=== PATIENT | female | born 1990 | race Caucasian/White ===

== ENCOUNTER 2022-02-05 13:57 | Emergency (ER) | payer OTHER ==
[~2022-02-05] VITALS: Ht 157.5 cm; Wt 59.1 kg
[2022-02-05 14:29] VITALS: BP 114/77
[2022-02-05 15:13] LABS: BASO # 0.1 x10^3/uL (0.0-0.2); BASO % 1 % (0-3); EOS # 0.1 x10^3/uL (0.0-0.7); EOS % 1 % (0-3); HEMATOCRIT 42.6 % (36.0-47.0); HEMOGLOBIN 14.7 g/dL (12.0-15.5); LYMPH # 2.8 x10^3/uL (1.0-4.8); LYMPH % 28 % (24-48); MEAN CORPUSCULAR HEMOGLOBIN 31 pg (25-35); MEAN CORPUSCULAR HGB CONC 34 g/dL (31-37); MEAN CORPUSCULAR VOLUME 90 fL (79-100); MONO # 0.6 x10^3/uL (0.0-1.1); MONO % 6 % (0-9); NEUT # 6.6 x10^3uL (1.8-7.7); NEUT % 65 % (31-73); PLATELET COUNT 294 x10^3/uL (140-400); RED BLOOD COUNT 4.73 x10^6/uL (3.50-5.40); RED CELL DISTRIBUTION WIDTH 13.1 % (11.5-14.5); WHITE BLOOD COUNT 10.1 x10^3/uL (4.0-11.0)
[2022-02-05 15:17] LABS: CREATININE 0.7 mg/dL (0.6-1.0); GFR 98.9; POTASSIUM 3.8 mmol/L (3.5-5.1)
[2022-02-05 15:21] LABS: U PREG PATIENT POSITIVE (NEG)
[2022-02-05 15:23] LABS: ALBUMIN 3.9 g/dL (3.4-5.0); ALBUMIN/GLOBULIN RATIO 1.1 (1.0-1.7); TOTAL BILIRUBIN 0.3 mg/dL (0.2-1.0); TOTAL PROTEIN 7.4 g/dL (6.4-8.2)
--- NOTE | 2022-02-05 15:34 | PHYS DOC ---
Past History Past Surgical History: No Surgical History Alcohol Use: None General Adult EDM: Chief Complaint: VAGINAL BLEEDING HPI: HPI: Patient is a 31-year-old female presents with vaginal bleeding. Patient states she has been having bright red, heavy vaginal bleeding since this morning. Denies clots. No pain. G3, P2. Patient has not been seen by OB as of yet. Denies fever or recent illness. She has history of anxiety and depression. Review of Systems: Review of Systems: ROS At least 10 ROS systems have been reviewed and are negative except as documented in the HPI. General: Negative except as outlined in HPI above. Skin: Negative except as outlined in HPI above. HEENT: Negative except as outlined in HPI above. Neck: Negative except as outlined in HPI above. Respiratory: Negative except as outlined in HPI above.. Cardiovascular: Negative except as outlined in HPI above. Abdomen: Negative except as outlined in HPI above. : Negative except as outlined in HPI above. Back/MSK: Negative except as outlined in HPI above. Neuro: Negative except as outlined in HPI above. Psych: Negative except as outlined in HPI above. Allergies: Allergies: Allergies Coded Allergies Type Severity Reaction Last Updated Verified No Known Drug Allergies 02/05/22 No Physical Exam: PE: Constitutional: Well developed, well nourished, no acute distress, non-toxic appearance. [] HENT: Normocephalic, atraumatic, bilateral external ears normal, oropharynx moist, no oral exudates, nose normal. [] Eyes: PERRLA, EOMI, conjunctiva normal, no discharge. [] Neck: Normal range of motion, no tenderness, supple, no stridor. [] Cardiovascular:Heart rate regular rhythm, no murmur [] Lungs & Thorax: Bilateral breath sounds clear to auscultation [] Abdomen: Bowel sounds normal, soft, no tenderness, no masses, no pulsatile masses. [] Skin: Warm, dry, no erythema, no rash. [] Back: No tenderness, no CVA tenderness. [] Extremities: No tenderness, no cyanosis, no clubbing, ROM intact, no edema. [] Neurologic: Alert and oriented X 3, normal motor function, normal sensory function, no focal deficits noted. [] Psychologic: Affect normal, judgement normal, mood normal. [] Current Patient Data: Labs: Laboratory Tests Test 02/05/22 14:05 3/12/22 14:57 02/05/22 15:02 Urine Color Pending Urine Clarity Pending Urine pH Pending Urine Specific [place] Pending Urine Protein Pending Urine Glucose (UA) Pending Urine Ketones (Stick) Pending Urine Blood Pending Urine Nitrite Pending Urine Bilirubin Pending Urine Urobilinogen Dipstick Pending Urine Leukocyte Esterase Pending Urine RBC Pending Urine WBC Pending Urine Bacteria Pending Urine Test Positive (NEG) White Blood Count 10.1 x10^3/uL (4.0-11.0) Red Blood Count 4.73 x10^6/uL (3.50-5.40) Hemoglobin 14.7 g/dL (12.0-15.5) Hematocrit 42.6 % (36.0-47.0) Mean Corpuscular Volume 90 fL (79-100) Mean Corpuscular Hemoglobin 31 pg (25-35) Mean Corpuscular Hemoglobin Concent 34 g/dL (31-37) Red Cell Distribution Width 13.1 % (11.5-14.5) Platelet Count 294 x10^3/uL (140-400) Neutrophils (%) (Auto) 65 % (31-73) Lymphocytes (%) (Auto) 28 % (24-48) Monocytes (%) (Auto) 6 % (0-9) Eosinophils (%) (Auto) 1 % (0-3) Basophils (%) (Auto) 1 % (0-3) Neutrophils # (Auto) 6.6 x10^3uL (1.8-7.7) Lymphocytes # (Auto) 2.8 x10^3/uL (1.0-4.8) Monocytes # (Auto) 0.6 x10^3/uL (0.0-1.1) Eosinophils # (Auto) 0.1 x10^3/uL (0.0-0.7) Basophils # (Auto) 0.1 x10^3/uL (0.0-0.2) POC Urine HCG, Qualitative hcg positive (Negative) Vital Signs: Vital Signs Date Time Temp Pulse Resp B/P (MAP) Pulse Ox O2 Delivery O2 Flow Rate FiO2 02/05/22 14:29 92 18 114/77 (89) 99 EKG: EKG: [] Radiology/Procedures: Radiology/Procedures: []EXAM: OBSTETRIC ULTRASOUND, <14 WEEKS. HISTORY: Vaginal bleeding in . COMPARISON: None. FINDINGS: Sonographic evaluation of the pelvis was performed transabdominally and transvaginally. The uterus is retroflexed and measures 8.8 x 7.1 x 5.7 cm. There is a single intrauterine gestation measuring 6 weeks 3 days. No pole is detected. The gestational sac contains some echogenic debris. No yolk sac is visualized. The gestational sac is elongated. There is no subchorionic collection. The right ovary measures 3.4 x 2.1 x 1.9 cm. The left ovary measures 3.1 x 2.5 x 1.4 cm. There is normal Doppler flow bilaterally. There is no adnexal mass. There is no significant free fluid. IMPRESSION: 1. An elongated endometrial gestational sac measures 6 weeks 3 days, but no pole or yolk sac is detectable. This is consistent with an anembryonic . Ongoing management is recommended. Electronically signed by: Kitty Cruz MD (02/05/2022 4:30 PM) [id number] Heart Score: C/O Chest Pain: No Risk Factors: Risk Factors: DM, Current or recent (<one month) smoker, HTN, HLP, family history of CAD, obesity. Risk Scores: Score 0 - 3: 2.5% MACE over next 6 weeks - Discharge Home Score 4 - 6: 20.3% MACE over next 6 weeks - Admit for Clinical Observation Score 7 - 10: 72.7% MACE over next 6 weeks - Early Invasive Strategies Course & Med Decision Making: Course & Med Decision Making Pertinent Labs and Imaging studies reviewed. (See chart for details) [] 22-year-old female presents with vaginal bleeding. Vaginally started this morning. Denies abdominal pain. G3, P2. Work-up in ER consisted of labs, urinalysis, quant, urine , type and screen, transvaginal ultrasound. Patient has a lot of anxiety and states that she is going to therapy currently due to her anxiety. Patient has a fear of needles and also vaginal exam. Patient started crying and shaking when she knew we had to labs and a vaginal exam. Patient stated that she wanted us to just do labs and not vaginal exam if she could choose. Patient refused a vaginal exam and labs were obtained. Transvaginal ultrasound also obtained. Urine was positive for blood. Quant level [id number]. urine positive for blood. Transvaginal ultrasound shows an elongated endometrial gestational sac measures 6 weeks 3 days, but no pole or yolk sac is detectable. This is consistent with an anembryonic . Ongoing management is recommended. Discussed results with patient. Advised patient she needs to follow-up with A[facility] DATA [facility]ER on Monday. I gave patient a copy of ultrasound report. Advised patient she would need to follow-up in 48 hours to have repeat quant's. Tylenol if she has discomfort. Discussed return precautions at length with patient. Patient verbalizes understanding of discharge instructions. Dragon Disclaimer: Dragon Disclaimer: This electronic medical record was generated, in whole or in part, using a voice recognition dictation system. Departure Departure: Impression: Primary Impression: Vaginal bleeding during Disposition: HOME / SELF CARE / HOMELESS Condition: STABLE Referrals: PCP,UNKNOWN (PCP) Patient Instructions: Vaginal Bleeding During , [id number] Additional Instructions: Ultrasound could not confirm viable . You need to follow-up in 2 days (48 hours), for repeat hCG quant levels. Your levels in the ER were [id number]. I am providing you with a copy of your ultrasound to show to your ANALYTICAL DATA MINER. They may want to repeat an ultrasound in 2 weeks due to possibly being too early. Please return to emergency room if you have worsening symptoms or concerns such as increase in bleeding, uncontrolled pain. EMERGENCY DEPARTMENT GENERAL DISCHARGE INSTRUCTIONS Thank you for coming to [facility] (ED) today and trusting us with you care. We trust that you had a positivie experience in our Emergency Department. If you wish to speak to the department management, you may call the director at [phone]. YOUR FOLLOW UP INSTRUCTIONS ARE FOLLOWS: 1. Do you have a private Doctor? If you do not have a private doctor, please ask for a resource list of physicians or clinics that may be able to assist you with follow up care. 2. The Emergency Physician has interpreted your x-rays. The X-Ray specialist will also review them. If there is a change in the findings, you will be notified in 48 hours when at all possible. 3. A lab test or culture has been done, your results will be reviewed and you will be notified if you need a change in treatment. ADDITIONAL INSTRUCTIONS AND INFORMATION: 1. Your care today has been supervised by a physician who is specially trained in emergency care. Many problems require more than one evaluation for a complete diagnosis and treatment. We recommend that you schedule your follow up appointment as recommended to ensure complete treatment of you illness or injury. If you are unable to obtain follow up care and continue to have a problem, or if your condition worsens, we recommend that you return to the ED. 2. We are not able to safely determine your condition over the phone nor are we able to give sound medical advice over the phone. For these safety reasons, if you call for medical advice we will ask you to come to the ED for further evaluation. 3. If you have any questions regarding these discharge instructions please call the ED at [phone]. SAFETY INFORMATION: In the interest of safety, wellness, and injury prevention; we encourage you to wear your sealbelt, if you smoke; quite smoking, and we encourage family to use a protective helmet for bicycling and other sporting events that present an increased risk for head injury. IF YOUR SYMPTOMS WORSEN OR NEW SYMPTOMS DEVELOP, OR YOU HAVE CONCERNS ABOUT YOUR CONDITION; OR IF YOUR CONDITION WORSENS WHILE YOU ARE WAITING FOR YOUR FOLLOW UP APPOINTMENT; EITHER CONTACT YOUR PRIMARY CARE DOCTOR, THE PHYSICIAN WHOSE NAME AND NUMBER YOU WERE GIVEN, OR RETURN TO THE ED IMMEDIATELY. DESTINY BYRD APRN Feb 05, 2022 15:34
[2022-02-05 15:44] LABS: CLARITY,URINE CLEAR; COLOR,URINE YELLOW; GLUCOSE,URINE NEG (NEG)
[2022-02-05 15:45] LABS: BACTERIA,URINE 0 /HPF (0-FEW); NITRITE,URINE NEG (NEG); RBC,URINE >40 /HPF (0-2); SQUAMOUS EPITHELIAL CELL,UR FEW /LPF; UROBILINOGEN,URINE 0.2 mg/dL (0.2 mg/dL); WBC,URINE 0 /HPF (0-4)
--- NOTE | 2022-02-05 16:32 | RAD ---
EXAM: OBSTETRIC ULTRASOUND, <14 WEEKS. HISTORY: Vaginal bleeding in . COMPARISON: None. FINDINGS: Sonographic evaluation of the pelvis was performed transabdominally and transvaginally. The uterus is retroflexed and measures 8.8 x 7.1 x 5.7 cm. There is a single intrauterine gestation m easuring 6 weeks 3 days. No pole is detected. The gestational sac contains some echogenic debri s. No yolk sac is visualized. The gestational sac is elongated. There is no subchorionic collection. The right ovary measures 3.4 x 2.1 x 1.9 cm. The left ovary measures 3.1 x 2.5 x 1.4 cm. There is nor mal Doppler flow bilaterally. There is no adnexal mass. There is no significant free fluid. IMPRESSION: 1. An elongated endometrial gestational sac measures 6 weeks 3 days, but no pole or yolk sac is detectable. This is consistent with an anembryonic . Ongoing management is recommended. Electronically signed by: Kitty Cruz MD (02/05/2022 4:30 PM) [id number]
== END 2022-02-05 17:48 | disposition home or self-care (01) ==
LOC: ER 13:57
DX: O46.91 Antepartum hemorrhage, unspecified, first trimester (principal); Z3A.01 Less than 8 weeks gestation of pregnancy
CPT/HCPCS: 36415; 76801; 76817; 80053; 81001; 81025; 84702; 85025; 99284

== ENCOUNTER 2022-02-07 20:06 | Emergency (ER) | payer OTHER ==
[~2022-02-07] VITALS: Ht 157.5 cm; Wt 56.8 kg
[2022-02-07] MEDS ORDERED: IV NORMAL SALINE 1,000ML 1,000 ML IV ONE (20:30)
--- NOTE | 2022-02-07 20:51 | PHYS DOC ---
Past History Past Surgical History: No Surgical History Alcohol Use: None General Adult EDM: Chief Complaint: ABDOMINAL PAIN HPI: HPI: Patient is a 31-year-old female who presents to the emergency department today for vaginal bleeding and pelvic pain. Patient reports that she was seen on Monday in this emergency department for vaginal bleeding and found out she was at that time and was likely having a miscarriage. Patient reports that she has had increase in her pain since then. She rates her pain 7 out of 10. No treatment prior to arrival. [facility] Patient states that she is not saturating any pads currently. Patient denies any nausea, fevers, vomiting Review of Systems: Review of Systems: Constitutional: See HPI GI: See HPI : See HPI Current Medications: Current Meds: Current Medications Medications (Trade) Dose Ordered Sig/Lesly Start Time Stop Time Status Last Admin Dose Admin Fentanyl Citrate (Fentanyl 2ml Vial) 50 mcg 1X ONCE 02/07/22 20:30 02/07/22 20:31 UNV Lorazepam (Ativan Inj) 1 mg 1X ONCE 02/07/22 20:30 02/07/22 20:31 UNV Sodium Chloride 1,000 ml @ 1,000 mls/hr 1X ONCE 02/07/22 20:30 02/07/22 21:29 UNV Allergies: Allergies: Allergies Coded Allergies Type Severity Reaction Last Updated Verified No Known Drug Allergies 02/05/22 No Physical Exam: PE: Constitutional: Well developed, well nourished, no acute distress, non-toxic appearance. [] HENT: Normocephalic, atraumatic, bilateral external ears normal, oropharynx moist, no oral exudates, nose normal. [] Eyes: PERRL, EOMI, conjunctiva normal, no discharge. [] Neck: Normal range of motion, no tenderness, supple, no stridor. [] Cardiovascular:Heart rate regular rhythm, no murmur [] Lungs & Thorax: Bilateral breath sounds clear to auscultation [] Abdomen: Bowel sounds normal, soft, bilateral lower abdominal tenderness with palpation, no rigidity, no masses, no pulsatile masses. [] Skin: Warm, dry, no erythema, no rash. [] Back: No tenderness, no CVA tenderness. [] Extremities: No tenderness, no cyanosis, no clubbing, ROM intact, no edema. [] Neurologic: Alert and oriented X 3, normal motor function, normal sensory function, no focal deficits noted. [] Psychologic: Affect normal, judgement normal, mood normal. [] Current Patient Data: Labs: Laboratory Tests Test 02/07/22 21:06 02/07/22 21:53 02/07/22 22:10 White Blood Count 15.5 x10^3/uL Red Blood Count 4.20 x10^6/uL Hemoglobin 13.0 g/dL Hematocrit 37.8 % Mean Corpuscular Volume 90 fL Mean Corpuscular Hemoglobin 31 pg Mean Corpuscular Hemoglobin Concent 34 g/dL Red Cell Distribution Width 12.9 % Platelet Count 305 x10^3/uL Neutrophils (%) (Auto) 84 % Lymphocytes (%) (Auto) 12 % Monocytes (%) (Auto) 4 % Eosinophils (%) (Auto) 0 % Basophils (%) (Auto) 1 % Neutrophils # (Auto) 13.0 x10^3uL Lymphocytes # (Auto) 1.8 x10^3/uL Monocytes # (Auto) 0.6 x10^3/uL Eosinophils # (Auto) 0.0 x10^3/uL Basophils # (Auto) 0.1 x10^3/uL Segmented Neutrophils % 79 % Lymphocytes % 16 % Monocytes % 4 % Eosinophils % 1 % Platelet Estimate Adequate Sodium Level 135 mmol/L Potassium Level 3.6 mmol/L Chloride Level 101 mmol/L Carbon Dioxide Level 23 mmol/L Anion Gap 11 Blood Urea Nitrogen 12 mg/dL Creatinine 0.7 mg/dL Estimated GFR (Cockcroft-Gault) 98.9 BUN/Creatinine Ratio 17 Glucose Level 127 mg/dL Calcium Level 8.7 mg/dL Total Bilirubin 0.3 mg/dL Aspartate Amino Transf (AST/SGOT) 24 U/L Alanine Aminotransferase (ALT/SGPT) 41 U/L Alkaline Phosphatase 81 U/L Total Protein 7.0 g/dL Albumin 3.7 g/dL Albumin/Globulin Ratio 1.1 Urine Collection Type Unknown Urine Color [place] Urine Clarity Cloudy Urine pH 7.5 Urine Specific [place] 1.025 Urine Protein Neg Urine Glucose (UA) Neg mg/dL Urine Ketones (Stick) 15 mg/dL Urine Blood Mod Urine Nitrite Neg Urine Bilirubin Neg Urine Urobilinogen Dipstick 0.2 mg/dL Urine Leukocyte Esterase Neg Urine RBC 6-10 /HPF Urine WBC 20-40 /HPF Urine Squamous Epithelial Cells Occ /LPF Urine Bacteria Many /HPF Maternal Serum HCG Beta Subunit 50065 mIU/mL Lipase 89 U/L Current Medications Medications (Trade) Dose Ordered Sig/Lesly Route PRN Reason Start Time Stop Time Status Last Admin Dose Admin Lorazepam (Ativan Inj) 1 mg 1X ONCE IVP 02/07/22 20:30 02/07/22 20:50 DC 02/07/22 21:10 Sodium Chloride 1,000 ml @ 1,000 mls/hr 1X ONCE IV 02/07/22 20:30 02/07/22 21:29 02/07/22 20:30 Fentanyl Citrate (Fentanyl 2ml Vial) 50 mcg 1X ONCE IVP 02/07/22 20:30 02/07/22 20:50 DC 02/07/22 21:10 Vital Signs: Vital Signs Date Time Temp Pulse Resp B/P (MAP) Pulse Ox O2 Delivery O2 Flow Rate FiO2 02/07/22 20:37 98.2 75 16 111/52 (71) 100 Room Air EKG: EKG: [] Radiology/Procedures: Radiology/Procedures: []PROCEDURE: PREG 1ST TRIMESTER EXAMINATION: US OB <14 WKS (FIRST TRIMESTER PELVIC ULTRASOUND) CLINICAL HISTORY: Pelvic pain, possible miscarriage. TECHNIQUE: Sonography of the pelvis was performed by transabdominal and transvaginal techniques. COMPARISON: 02/05/2022 FINDINGS: Intrauterine saclike structure seen the in the lower uterine segment/cervical canal with no visible pole or yolk sac. Several small areas of surrounding hypoechogenicity may represent perigestational hemorrhage. Right ovary measures 1.8 x 1.7 x 1.2 cm with normal sonographic appearance and blood flow. Left ovary not definitively visualized. IMPRESSION: Findings highly concerning for a inevitable spontaneous with possible perigestational hemorrhage as described. Electronically signed by: West Gamino DO (02/07/2022 10:05 PM) [facility] DICTATED AND SIGNED BY: WEST GAMINO DO DATE: 02/07/222155 CC: MANPREET ADLER APRN; PCP,UNKNOWN ~MTH0 0 cervical exam: uterus feels contracted. bright red vaginal bleedin noted. Heart Score: C/O Chest Pain: N/A Risk Factors: Risk Factors: DM, Current or recent (<one month) smoker, HTN, HLP, family history of CAD, obesity. Risk Scores: Score 0 - 3: 2.5% MACE over next 6 weeks - Discharge Home Score 4 - 6: 20.3% MACE over next 6 weeks - Admit for Clinical Observation Score 7 - 10: 72.7% MACE over next 6 weeks - Early Invasive Strategies Course & Med Decision Making: Course & Med Decision Making Pertinent Labs and Imaging studies reviewed. (See chart for details) Patient presents to the emergency department for vaginal bleeding and pelvic pain for being told that she is having a miscarriage on Monday. After reviewing patient's chart it appears she had an ultrasound on Monday in this emergency department it appears that patient did have an elongated endometrial gestational sac with out any pole findings consistent with a blighted ovum. Work-up in the emergency department consisted of blood work including an Rh, urinalysis and pelvic ultrasound. Patient treated with IV fluids and pain medication she is requesting something for anxiety as she has severe anxiety when she has IV insertion and lab draws. Patient is noted to have leukocytosis with a white blood cell count of 15.5. Patient is Rh+. CMP unremarkable. Lipase negative. Patient's ultrasound shows good blood flow to the right ovary, left ovary is not visualized with possible perigestational hemorrhage. Gestational sac was in canal. Patient does not report that she has heavy bleeding in fact she states that she is not saturating any pads. I discussed these findings with Dr. Copeland who advised that patient is likely having an miscarriage and to treat her pain and as long as she is stable and not having severe vaginal bleeding she can follow-up in their office outpatient. UA showed uti and she will be discharged home with abx and pain medication. Advised to follow up with OB tomorrow. I discussed with patient all findings and diagnostic testing as well as the need to follow-up with PCP for further evaluation and treatment or return to the ER if any new or worsening symptoms. Strict return precautions were also discussed at length. Patient voiced understanding and agreement with the plan. Patient is hemodynamically stable at the time of disposition. Son Disclaimer: Son Disclaimer: This electronic medical record was generated, in whole or in part, using a voice recognition dictation system. Departure Departure: Impression: Primary Impression: Pelvic pain Additional Impression: Urinary tract infection Qualified Codes: N30.01 - Acute cystitis with hematuria Disposition: 01 HOME / SELF CARE / HOMELESS Condition: GOOD Referrals: PCP,UNKNOWN (PCP) Patient Instructions: Miscarriage Additional Instructions: You were seen in the emergency department for abdominal pain. You are currently having a miscarriage. You were also noted to have a urinary tract infection which will be treated with an antibiotic. Please start and finish the antibiotic completely. Increase your fluids. You are also being discharged home with pain medication. This medication may cause drowsiness so do not take any need to be alert, driving a vehicle with alcohol. Please contact your KNITTING SUPERVISOR tomorrow to set up a follow-up appointment. Return to this emergency department or go to [facility] if you develop worsening of your abdominal pain, intractable nausea or vomiting, high fevers refractory to treatment, worsening of your vaginal bleeding. Scripts Hydrocodone Bit/Acetaminophen (HYDROCODONE-APAP 5-325 ) 1 Each Tablet 1 TAB PO PRN Q6HRS PRN for PAIN for 2 Days, #8 TAB 0 Refills Prov: MANPREET ADLER APRN 02/07/22 Cephalexin (KEFLEX) 500 Mg Capsule 1 CAP PO TID for infection for 7 Days, #21 CAP 0 Refills Prov: MANPREET ADLER [facility] 02/07/22 MANPREET ADLER APRN Feb 07, 2022 20:51
[2022-02-07 21:25] LABS: BASO # 0.1 x10^3/uL (0.0-0.2); BASO % 1 % (0-3); EOS % 0 % (0-3); HEMATOCRIT 37.8 % (36.0-47.0); LYMPH # 1.8 x10^3/uL (1.0-4.8); LYMPH % 12 % (24-48); MEAN CORPUSCULAR HEMOGLOBIN 31 pg (25-35); MEAN CORPUSCULAR HGB CONC 34 g/dL (31-37); MEAN CORPUSCULAR VOLUME 90 fL (79-100); MONO # 0.6 x10^3/uL (0.0-1.1); MONO % 4 % (0-9); NEUT % 84 % (31-73); PLATELET COUNT 305 x10^3/uL (140-400); RED CELL DISTRIBUTION WIDTH 12.9 % (11.5-14.5); WHITE BLOOD COUNT 15.5 x10^3/uL (4.0-11.0)
[2022-02-07 21:26] LABS: % EOS 1 % (0-5); % LYMPHS 16 % (24-48); % MONOS 4 % (0-10); % SEGS 79 % (35-66)
[2022-02-07 21:27] LABS: PLT ESTIMATE ADEQUATE (ADEQUATE)
[2022-02-07 21:35] LABS: CALCIUM 8.7 mg/dL (8.5-10.1); CREATININE 0.7 mg/dL (0.6-1.0); GFR 98.9; POTASSIUM 3.6 mmol/L (3.5-5.1)
[2022-02-07 21:43] LABS: ALBUMIN 3.7 g/dL (3.4-5.0); ALBUMIN/GLOBULIN RATIO 1.1 (1.0-1.7); TOTAL BILIRUBIN 0.3 mg/dL (0.2-1.0)
--- NOTE | 2022-02-07 22:07 | RAD ---
EXAMINATION: US OB <14 WKS (FIRST TRIMESTER PELVIC ULTRASOUND) CLINICAL HISTORY: Pelvic pain, possible miscarriage. TECHNIQUE: Sonography of the pelvis was performed by transabdominal and transvaginal techniques. COMPARISON: 02/05/2022 FINDINGS: Intrauterine saclike structure seen the in the lower uterine segment/cervical canal with no visible f etal pole or yolk sac. Several small areas of surrounding hypoechogenicity may represent perigestatio nal hemorrhage. Right ovary measures 1.8 x 1.7 x 1.2 cm with normal sonographic appearance and blood flow. Left ovary not definitively visualized. IMPRESSION: Findings highly concerning for a inevitable spontaneous with possible perigestational hemorr richardson as described. Electronically signed by: West Huggins DO (02/07/2022 10:05 PM) LEONID
[2022-02-07 22:50] LABS: CLARITY,URINE CLOUDY; COLOR,URINE PINK; GLUCOSE,URINE NEG (NEG)
[2022-02-07 22:51] LABS: BACTERIA,URINE MANY /HPF (0-FEW); NITRITE,URINE NEG (NEG); SQUAMOUS EPITHELIAL CELL,UR OCC /LPF; UROBILINOGEN,URINE 0.2 mg/dL (0.2 mg/dL); WBC,URINE 20-40 /HPF (0-4)
[2022-02-07] MEDS ORDERED: HYDR-2155 PO (23:04)
[2022-02-07] MEDS ORDERED: CEPH500C PO (23:04)
[2022-02-07 23:41] VITALS: BP 97/52
== END 2022-02-07 23:42 | disposition home or self-care (01) ==
LOC: ER 20:06
DX: N30.01 Acute cystitis with hematuria (principal)
CPT/HCPCS: 36415; 76801; 80053; 81001; 83690; 84702; 85007; 85025; 86901; 87077; 87086; 96361; 96374; 96375; 96376; 99284; J2060; J3010; J7030